=== PATIENT | male | born 1985 | race Caucasian/White ===

== ENCOUNTER 2017-07-10 10:27 | Emergency (ER) | payer MEDICAID ==
[~2017-07-10] VITALS: Ht 175.3 cm; Wt 90.0 kg
[~2017-07-10 10:27] MED LIST: Z.0.NO CURRENT MEDS
[2017-07-10 10:30] VITALS: BP 132/62; PULSE 72; RESP 16; TEMP 98.4; O2SAT 98
[2017-07-10] MEDS ORDERED: PROPARACAINE HCL 0.5% OPHT SOLN 15 ML BTL LEFT EYE ONE (11:00)
[2017-07-10] MEDS ORDERED: FLUORESCEIN SOD 1 MG STRIP LEFT EYE ONE (11:00)
--- NOTE | 2017-07-10 11:09 | PD ---
HPI Chief Complaint: Eye Problems/Injury Time Seen by Provider: 11:08 Travel History International Travel<30 days: No Contact w/Intl Traveler<30days: No Traveled to known affect area: No History of Present Illness HPI 32-year-old male presents the emergency department with injury to the left side. 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 He states he rinsed it thoroughly at the time and Continued to work. Patient states the pain is worsening as well as some purulent drainage this morning. He states his vision is not affected, but he is photophobic. Pain is 8 out of 10. He has no other complaints. He has allergies to sulfa. PFSH Past Medical History Bipolar Disorder: Yes Heart Rhythm Problems: No Cardiac Catheterization: No Cardiovascular Problems: Yes High Cholesterol: No Congestive Heart Failure: No Diabetes: No Hypertension: No Immunizations Current: Yes Myocardial Infarction: No Past Surgical History Coronary Artery Bypass Graft: No Social History Alcohol Use: No Tobacco Use: Yes Substance Use: No Allergies-Medications (Allergen,Severity, Reaction): Coded Allergies: Sulfa (Sulfonamide Antibiotics) (Verified Allergy, Intermediate, 07/10/17) Reported Meds & Prescriptions Reported Meds & Active Scripts Active Reported No Current Meds (Miscellaneous Medication) Misc Review of Systems Except as stated in HPI: all other systems reviewed are Neg General / Constitutional: No: Fever Eyes: Positive: Photophobia, Drainage, Redness, Foreign Body Sensation, Pain, Tearing, No: Diploplia, Blurred Vision, Blind Spots, Visual changes, Blindness HENT: No: Headaches Cardiovascular: No: Chest Pain or Discomfort Respiratory: No: Shortness of Breath Gastrointestinal: No: Abdominal Pain Genitourinary: No: Dysuria Musculoskeletal: No: Pain Skin: No Rash Neurologic: No: Weakness Psychiatric: No: Depression Endocrine: No: Polydipsia Hematologic/Lymphatic: No: Easy Bruising Physical Exam Narrative GENERAL: Patient appears in mild to moderate distress. SKIN: Warm and dry. Normal color. Normal turgor. HEAD: Atraumatic. Normocephalic. EYES: Pupils equal and round. No scleral icterus. The patient has moderate injection and tearing from the left eye. Fluorescein dye is applied as well as proparacaine drops, with obvious corneal abrasions noted on Wood lamp exam at the 4 o'clock position. ENT: No nasal bleeding or discharge. Mucous membranes pink and moist. Pharynx is clear. Airway is patent. NECK: Trachea midline. Supple. CARDIOVASCULAR: Regular rate and rhythm. RESPIRATORY: No accessory muscle use. MUSCULOSKELETAL: Extremities without clubbing, cyanosis, or edema. No obvious deformities. NEUROLOGICAL: Awake and alert. No obvious cranial nerve deficits. Motor grossly within normal limits. Five out of 5 muscle strength in the arms and legs. Normal speech. PSYCHIATRIC: Appropriate mood and affect; insight and judgment normal. Data Data Last Documented VS Vital Signs Date Time Temp Pulse Resp B/P (MAP) Pulse Ox O2 Delivery O2 Flow Rate FiO2 07/10/17 10:30 98.4 72 16 132/62 (85) 98 Orders Orders Proparacaine 0.5% Opth Soln (Alcaine 0.5 (07/10/17 11:00) Fluorescein Strip ([id number] A.T.) (07/10/17 11:00) MDM Medical Decision Making Medical Screen Exam Complete: Yes Emergency Medical Condition: Yes Differential Diagnosis Left corneal abrasion. Chemical burn. Conjunctivitis. Narrative Course Patient is medically stable at time of exam. Patient is treated with erythromycin ophthalmic ointment every 4 hours while awake. Patient also given ibuprofen 800 mg 3 times daily with food #30. Patient follow-up with records clerk if symptoms do not improve. Diagnosis Primary Impression: Corneal abrasion, left Qualified Codes: S05.02XA - Injury of conjunctiva and corneal abrasion without foreign body, left eye, initial encounter Referrals: Chicken Buyer Patient Instructions: Conjunctivitis (ED), General Instructions Scripts Ibuprofen (Ibuprofen) 800 Mg Tab 800 MG PO Q8H Y for Pain/Inflammation, #30 TAB 0 Refills Prov: Jovanna Curtis MD 07/10/17 Erythromycin Opth Oint (Erythromycin Opth Oint) 5 Mg/Gm Oint 1 APPLIC LEFT EYE Q4HR WHILE AWAKE NEB for Infection, #1 TUBE 0 Refills Prov: Jovanna Curtis MD 07/10/17 Disposition: 01 DISCHARGE HOME Condition: Stable Prince Vallejo Jul 10, 2017 11:09
[2017-07-10] MEDS ORDERED: IBUP800T23 PO ×3 (11:22→11:31)
[2017-07-10] MEDS ORDERED: ERYTOIN10 LEFT EYE (11:22)
[2017-07-20] MEDS ORDERED: PRED1SUS6 LEFT EYE (10:31)
== END 2017-07-10 11:41 | disposition home or self-care (01) ==
LOC: NEPK 10:27
DX: S05.02XA Injury of conjunctiva and corneal abrasion without foreign body, left eye, initial encounter (principal); F31.9 Bipolar disorder, unspecified; W45.8XXA Other foreign body or object entering through skin, initial encounter; Y93.89 Activity, other specified; Z72.0 Tobacco use
CPT/HCPCS: 99283

== ENCOUNTER 2017-07-13 18:13 | Emergency (ER) | payer MEDICAID ==
[~2017-07-13] VITALS: Ht 152.4 cm; Wt 90.0 kg
[~2017-07-13 18:13] MED LIST changes: +ERYTOIN10 LEFT EYE; +IBUP800T23 PO
[2017-07-13 18:17] VITALS: BP 126/85; PULSE 83; RESP 14; TEMP 98.7; O2SAT 99
[2017-07-13] MEDS ORDERED: PROPARACAINE HCL 0.5% OPHT SOLN 15 ML BTL LEFT EYE ONE (18:45)
[2017-07-13] MEDS ORDERED: ERYTOIN10 LEFT EYE (18:58)
[2017-07-13] MEDS ORDERED: IBUP800T23 PO (18:58)
[2017-07-13] MEDS ORDERED: PERC5TAB12 PO (18:58)
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
[2017-07-13] MEDS ORDERED: oxyCODONE/ACETAMINOPHEN 5 MG/325 MG TAB PO ONE (19:00)
[2017-07-20] MEDS ORDERED: PRED1SUS6 LEFT EYE (10:31)
== END 2017-07-13 19:23 | disposition home or self-care (01) ==
LOC: NEPK 18:13
DX: T65.891D Toxic effect of other specified substances, accidental (unintentional), subsequent encounter (principal); T26 Burn and corrosion confined to eye and adnexa; Z72.0 Tobacco use; Z86.59 Personal history of other mental and behavioral disorders; Z86.79 Personal history of other diseases of the circulatory system; X58.XXXD Exposure to other specified factors, subsequent encounter; Y99.0 Civilian activity done for income or pay
CPT/HCPCS: 99284

== ENCOUNTER 2017-08-11 17:08 | Emergency (ER) | payer MEDICAID, OTHER ==
[~2017-08-11 17:08] MED LIST changes: +IBUP1TAB7 PO; -IBUP800T23 PO; +PERC5TAB12 PO; +PRED1SUS6 LEFT EYE; -Z.0.NO CURRENT MEDS
[2017-08-11 17:15] VITALS: BP 140/74; PULSE 113; RESP 18; TEMP 97; O2SAT 98
[2017-08-11 18:49] VITALS: BP 147/78; PULSE 101; RESP 20; TEMP 98; O2SAT 98
[2017-08-11] MEDS ORDERED: diphenhydrAMINE HCL 50 MG CAP PO ONE (20:00)
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
[2017-08-11 20:15] LABS: AUTOMATED NEUTROPHIL # 6.5 TH/MM3 (1.8-7.7); BASOPHIL % 0.2 % (0.0-2.0); EOSINOPHIL % 0.4 % (0.0-4.0); HEMATOCRIT 43.1 % (39.0-51.0); HEMO FLAGS DIFF FINAL; LYMPH % 24.9 % (9.0-44.0); LYMPHOCYTE # 2.6 TH/MM3 (1.0-4.8); MEAN CELL VOLUME 88.6 FL (80.0-100.0); MEAN CORPUSCULAR HEMOGLOBIN 30.4 PG (27.0-34.0); MEAN CORPUSCULAR HGB CONC 34.3 % (32.0-36.0); MONO % 12.1 % (0.0-8.0); NEUT % 62.4 % (16.0-70.0); PLATELET COUNT 333 TH/MM3 (150-450); RED BLOOD COUNT 4.86 MIL/MM3 (4.50-5.90); RED CELL DISTRIBUTION WIDTH 12.4 % (11.6-17.2); WHITE BLOOD COUNT 10.4 TH/MM3 (4.0-11.0)
[2017-08-11 20:39] LABS: ANION GAP 10 MEQ/L (5-15); AST (GOT) 18 U/L (15-37); BICARBONATE 22.4 MEQ/L (21.0-32.0); BLOOD UREA NITROGEN 10 MG/DL (7-18); CHLORIDE 105 MEQ/L (98-107); GLOMERULAR FILTRATION RATE 100 ML/MIN (>89); POTASSIUM 3.7 MEQ/L (3.5-5.1); SODIUM (NA) 137 MEQ/L (136-145)
[2017-08-11 20:42] LABS: ACETAMINOPHEN LESS THAN 3.0 MCG/ML (10.0-30.0); ALCOHOL LESS THAN 3 MG/DL (0-5); ALKALINE PHOSPHATASE 84 U/L (45-117); ALT (GPT) 42 U/L (12-78); TOTAL BILIRUBIN ADULT 0.6 MG/DL (0.2-1.0)
== END 2017-08-12 01:56 ==
LOC: NEPJ 17:08
DX: F19.10 Other psychoactive substance abuse, uncomplicated (principal); F31.9 Bipolar disorder, unspecified; F43.10 Post-traumatic stress disorder, unspecified; F20.9 Schizophrenia, unspecified
CPT/HCPCS: 80053; 80307; 85025; 99284; Q0163

== ENCOUNTER 2017-08-29 09:42 | Emergency (ER) | payer MEDICAID, OTHER ==
[~2017-08-29] VITALS: Ht 177.8 cm; Wt 85.0 kg
[2017-08-29 09:43] VITALS: BP 138/78; PULSE 89; RESP 16; TEMP 97.8; O2SAT 100
[2017-08-29] MEDS ORDERED: PROPARACAINE HCL 0.5% OPHT SOLN 15 ML BTL RIGHT EYE ONE (10:30)
[2017-08-29] MEDS ORDERED: ERYTOIN10 LEFT EYE (11:07)
--- NOTE | 2017-08-29 11:09 | PD ---
HPI . Foreign body in right eye Chief Complaint: Foreign Body Time Seen by Provider: 10:35 Travel History International Travel<30 days: No Contact w/Intl Traveler<30days: No Traveled to known affect area: No History of Present Illness HPI 32-year-old male patient presents emergency department for evaluation for body in his right eye. Patient states he was cutting metal on Thursday without his safety glasses on and felt something in his eye then. Patient states the symptoms have not resolved since that time. Patient denies any blurred vision or visual disturbances. Patient states he is up-to-date on his tetanus. PFSH Past Medical History Bipolar Disorder: Yes Heart Rhythm Problems: No Cardiac Catheterization: No Cardiovascular Problems: Yes High Cholesterol: No Congestive Heart Failure: No Diabetes: No Heparin Induced Thrombocytopen: No Hypertension: No Psychiatric: Yes (PTSD) Immunizations Current: Yes Myocardial Infarction: No Schizophrenia: Yes Past Surgical History Coronary Artery Bypass Graft: No Other Surgery: Yes (BLE venous removal) Social History Alcohol Use: No (Lives in a sober living community) Tobacco Use: No Substance Use: No (Lives in a sober living community) Allergies-Medications (Allergen,Severity, Reaction): Coded Allergies: Sulfa (Sulfonamide Antibiotics) (Verified Allergy, Intermediate, 07/27/17) Reported Meds & Prescriptions Reported Meds & Active Scripts Active Erythromycin Opth Oint 5 Mg/Gm Oint 1 Applic LEFT EYE QID 7 Days Prednisolone Acetate Opth 1% Susp 1 Drop LEFT EYE Q4HR Erythromycin Opth Oint 5 Mg/Gm Oint 1 Applic LEFT EYE QID 7 Days Ibuprofen 800 Mg Tab 800 Mg PO Q6HR PRN Percocet (Oxycodone-Acetaminophen) 5-325 mg Tab 1-2 Tab PO Q6H PRN Ibuprofen 800 Mg Tab 800 Mg PO Q8H PRN Erythromycin Opth Oint 5 Mg/Gm Oint 1 Applic LEFT EYE Q4HR WHILE AWAKE NEB Review of Systems Except as stated in HPI: all other systems reviewed are Neg Physical Exam Narrative GENERAL: Well-nourished, well-developed 32-year-old male patient in no acute distress. Nontoxic-appearing. SKIN: Focused skin assessment warm/dry. HEAD: Normocephalic. Atraumatic.. EYES: Right eye mildly injected. Small fluorescein dye uptake located between the 8 o'clock and 9 o'clock position over the iris, not in the central vision. PERRLA demonstrated, extraocular motions intact bilaterally. Visual acuity: Right eye 20/50, left eye 20/20, bilateral eyes 20/40. NECK: Supple, trachea midline. No JVD or lymphadenopathy. CARDIOVASCULAR: Regular rate and rhythm without murmurs, gallops, or rubs. RESPIRATORY: Breath sounds equal bilaterally. No accessory muscle use. GASTROINTESTINAL: Abdomen soft, non-tender, nondistended. MUSCULOSKELETAL: No cyanosis, or edema. BACK: Nontender without obvious deformity. No CVA tenderness. Data Data Last Documented VS Vital Signs Date Time Temp Pulse Resp B/P (MAP) Pulse Ox O2 Delivery O2 Flow Rate FiO2 08/29/17 11:31 08/29/17 09:43 97.8 89 16 100 Orders Orders Proparacaine 0.5% Opth Soln (Alcaine 0.5 (08/29/17 10:30) Ed Discharge Order (08/29/17 11:09) [facility] Medical Decision Making Medical Screen Exam Complete: Yes Emergency Medical Condition: Yes Differential Diagnosis Differential diagnoses include but not limited to foreign body in the right eye , corneal abrasion, iritis Narrative Course 32-year-old male patient presents emergency department for evaluation of foreign body in his right eye. Proparacaine was administered of the right eye. Eye was thoroughly irrigated with normal saline. Small foreign body was removed. Fluorescein dye and Wood lamp was used to evaluate for corneal abrasions. Small amount of fluorescein dye uptake was started between 8 and 9 o 'clock position over the iris. Patient was given a prescription for erythromycin ointment and discharged home with instructions to follow-up with an third miller if symptoms persist but otherwise come to the emergency Department with any worsening condition or acute changes. Diagnosis Primary Impression: Corneal abrasion Qualified Codes: S05.01XA - Injury of conjunctiva and corneal abrasion without foreign body, right eye, initial encounter Referrals: Primary Care Physician Patient Instructions: Corneal Abrasion (ED), General Instructions Additional Instructions: Please return to emergency department if your symptoms return or worsen. Follow up with your primary care provider. Take medications as prescribed. Med/Other Pt SpecificInfo: Prescription(s) given Scripts Erythromycin Opth Oint (Erythromycin Opth Oint) 5 Mg/Gm Oint 1 APPLIC LEFT EYE QID for Infection for 7 Days, #1 TUBE 0 Refills Prov: Jovanna Hendrix 08/29/17 Disposition: 01 DISCHARGE HOME Condition: Stable Jovanna Hendrix Aug 29, 2017 11:08
== END 2017-08-29 11:31 | disposition home or self-care (01) ==
LOC: NEPD 09:42
DX: S05.01XA Injury of conjunctiva and corneal abrasion without foreign body, right eye, initial encounter (principal); F31.9 Bipolar disorder, unspecified; F43.10 Post-traumatic stress disorder, unspecified; F20.9 Schizophrenia, unspecified; Z79.899 Other long term (current) drug therapy; Z88.2 Allergy status to sulfonamides; W22.8XXA Striking against or struck by other objects, initial encounter
CPT/HCPCS: 99283

== ENCOUNTER 2017-10-19 18:52 | Emergency (ER) | payer MEDICAID ==
[~2017-10-19] VITALS: Ht 175.3 cm; Wt 86.4 kg
[2017-10-19 18:53] VITALS: BP 148/69; PULSE 77; RESP 18; TEMP 98.3; O2SAT 100
[2017-10-19] MEDS ORDERED: FLUT1SPR5 EACH NARE (20:28)
[2017-10-19] MEDS ORDERED: MUPI2%T TOPICAL (20:28)
--- NOTE | 2017-10-19 20:28 | PD ---
HPI Chief Complaint: Cold / Flu Symptoms Time Seen by Provider: 20:13 Travel History International Travel<30 days: No Contact w/Intl Traveler<30days: No Traveled to known affect area: No History of Present Illness HPI 32-year-old male here with mild URI-like symptoms for the last week. He also has multiple small pustules on his abdomen where he shaves. He denies fever or chills. Contacts or foreign travel. No aggravating or alleviating factors. Symptoms severity is mild. PFSH Past Medical History Bipolar Disorder: Yes Heart Rhythm Problems: No Cardiac Catheterization: No Cardiovascular Problems: Yes High Cholesterol: No Congestive Heart Failure: No Diabetes: No Heparin Induced Thrombocytopen: No Hypertension: No Psychiatric: Yes (PTSD) Immunizations Current: Yes Myocardial Infarction: No Schizophrenia: Yes Past Surgical History Coronary Artery Bypass Graft: No Other Surgery: Yes (BLE venous removal) Social History Alcohol Use: No (Lives in a sober living community) Tobacco Use: No Substance Use: No (Lives in a sober living community) Allergies-Medications (Allergen,Severity, Reaction): Coded Allergies: Sulfa (Sulfonamide Antibiotics) (Verified Allergy, Intermediate, 07/27/17) Reported Meds & Prescriptions Reported Meds & Active Scripts Active Erythromycin Opth Oint 5 Mg/Gm Oint 1 Applic LEFT EYE QID 7 Days Prednisolone Acetate Opth 1% Susp 1 Drop LEFT EYE Q4HR Erythromycin Opth Oint 5 Mg/Gm Oint 1 Applic LEFT EYE QID 7 Days Ibuprofen 800 Mg Tab 800 Mg PO Q6HR PRN Percocet (Oxycodone-Acetaminophen) 5-325 mg Tab 1-2 Tab PO Q6H PRN Ibuprofen 800 Mg Tab 800 Mg PO Q8H PRN Erythromycin Opth Oint 5 Mg/Gm Oint 1 Applic LEFT EYE Q4HR WHILE AWAKE NEB Review of Systems Except as stated in HPI: all other systems reviewed are Neg General / Constitutional: No: Fever Eyes: No: Visual changes HENT: Positive: Sore Throat, Congestion Cardiovascular: No: Chest Pain or Discomfort Respiratory: Positive: Cough Gastrointestinal: No: Abdominal Pain Genitourinary: No: Dysuria Musculoskeletal: No: Pain Physical Exam Narrative GENERAL: Alert and well-appearing male SKIN: Warm and dry. Multiple small erythematous pustules on patient's abdomen. No areas of induration or fluctuance. HEAD: Normocephalic. EYES: No scleral icterus. No injection or drainage. Ears/nose/throat; no TM erythema. Clear nasal discharge. No sinus tenderness. Mild pharyngeal erythema without tonsillar hypertrophy or exudate. Uvula is midline. Airway is patent. NECK: Supple, trachea midline. CARDIOVASCULAR: Regular rate and rhythm RESPIRATORY: Breath sounds equal bilaterally. No accessory muscle use. GASTROINTESTINAL: Abdomen soft, non-tender, nondistended. Data Data Last Documented VS Vital Signs Date Time Temp Pulse Resp B/P (MAP) Pulse Ox O2 Delivery O2 Flow Rate FiO2 10/19/17 18:53 98.3 77 18 148/69 (95) 100 MDM Medical Decision Making Medical Screen Exam Complete: Yes Emergency Medical Condition: Yes Differential Diagnosis URI, folliculitis, abscess Narrative Course 32-year-old male with mild URI and mild case of folliculitis on his abdomen. He 'll be treated with Flonase for his nasal congestion and Bactroban ointment for his folliculitis. Diagnosis Primary Impression: Folliculitis Additional Impression: URI (upper respiratory infection) Qualified Codes: J06.9 - Acute upper respiratory infection, unspecified; B97.89 - Other viral agents as the cause of diseases classified elsewhere Referrals: [facility] Scripts Mupirocin Topical (Bactroban Topical) 22 Gm Cream 1 APPLIC TOPICAL BID for Mgmt Bacterial Infection, #1 TUBE 0 Refills Prov: Christa Kruger 10/19/17 Fluticasone Nasal [place] (Flonase Nasal [place]) 50 Mcg/Act [place] 50 MCG EACH NARE BID for Allergies, #1 BOTTLE 0 Refills Prov: Christa Kruger 10/19/17 Disposition: 01 DISCHARGE HOME Condition: Stable Christa Kruger Oct 19, 2017 20:28
== END 2017-10-19 20:39 | disposition home or self-care (01) ==
LOC: NEPK 18:52
DX: L73.9 Follicular disorder, unspecified (principal); J06.9 Acute upper respiratory infection, unspecified; F31.9 Bipolar disorder, unspecified; F43.10 Post-traumatic stress disorder, unspecified; F20.9 Schizophrenia, unspecified
CPT/HCPCS: 99284

== ENCOUNTER 2017-11-27 07:26 | Emergency (ER) | payer MEDICAID ==
[~2017-11-27] VITALS: Ht 175.3 cm; Wt 87.0 kg
[~2017-11-27 07:26] MED LIST changes: +FLUT1SPR5 EACH NARE; +MUPI2%T TOPICAL
[2017-11-27 07:27] VITALS: BP 138/83; PULSE 78; RESP 16; TEMP 99.2; O2SAT 99
--- NOTE | 2017-11-27 07:54 | PD ---
HPI Chief Complaint: Medical Clearance Time Seen by Provider: 07:42 Travel History International Travel<30 days: No Contact w/Intl Traveler<30days: No Traveled to known affect area: No History of Present Illness HPI 32-year-old male presents to the emergency department requesting a note to return back to work tomorrow after calling off because he was up vomiting last night. He says he last vomited at 4 AM and has had water and tea and is without continued nausea and vomiting. He denies abdominal pain. Reports a bout of diarrhea this morning. Denies hematemesis or hematochezia. Denies fevers. Denies dysuria. His only request is work note. He has not taken any medications or tried any treatments to alleviate his symptoms. No known relieving factors. Thinks his symptoms were aggravated by eating bad solids last night. Denies alcohol or illicit drug use. Dr. Tai is his primary care provider. Denies significant past medical history. Allergies to sulfa. Has no other medical complaints. No other modifying factors or associated signs and symptoms. History Social History Alcohol Use: No (Lives in a sober living community) Tobacco Use: No Allergies-Medications (Allergen,Severity, Reaction): Coded Allergies: Sulfa (Sulfonamide Antibiotics) (Verified Allergy, Intermediate, 07/27/17) Reported Meds & Prescriptions Reported Meds & Active Scripts Active No Active Prescriptions or Reported Medications Review of Systems Except as stated in HPI: all other systems reviewed are Neg Physical Exam Narrative GENERAL: Well-nourished, well-developed male patient, in no acute distress; afebrile, nontoxic-appearing SKIN: Warm and dry. HEAD: Atraumatic. Normocephalic. EYES: Pupils equal and round. No scleral icterus. No injection or drainage. ENT: Mucosa pink and moist. Airway patent. NECK: Trachea midline. CARDIOVASCULAR: Regular rate and rhythm. No murmur appreciated. RESPIRATORY: No accessory muscle use. Breath sounds clear and equal bilaterally. GASTROINTESTINAL: Abdomen soft, non-tender, nondistended. Positive bowel sounds. No hepato-splenomegaly, or palpable masses. No guarding. MUSCULOSKELETAL: No obvious deformities. No clubbing. No cyanosis. No edema. NEUROLOGICAL: Awake and alert. Oriented 3. No obvious cranial nerve deficits. Motor grossly within normal limits. Normal speech. PSYCHIATRIC: Appropriate mood and affect; insight and judgment normal. Data Data Last Documented VS Vital Signs Date Time Temp Pulse Resp B/P (MAP) Pulse Ox O2 Delivery O2 Flow Rate FiO2 11/27/17 07:27 99.2 78 16 138/83 (101) 99 Room Air [facility] Medical Screen Exam Complete: Yes Emergency Medical Condition: No Differential Diagnosis Medical clearance, gastroenteritis Narrative Course Patient requesting note to return back to work after calling out. His primary care provider is Dr. Tai. He can follow-up with his primary care provider in the office. Vital signs are stable and the patient is stable for outpatient follow-up and treatment. The patient has no urgent or emergent medical complaints. There is no emergent or urgent medical need at this time. I instructed the patient to follow up with their primary care provider. A medical screening exam was performed: At the time of evaluation the presenting medical condition was determined not to be of an emergent nature. The patient was given the option of receiving additional care, but declined. Patient was given options for additional community resources from which to obtain care. The Patient Has Been advised to seek medical attention for their presenting complaint. The patient has been advised to return to the ER at any time if an emergent condition develops. Primary Impression: Encounter for medical screening examination Scripts No Active Prescriptions or Reported Meds Condition: Stable Luisa Bush Nov 27, 2017 07:54
== END 2017-11-27 07:57 | disposition left against medical advice (07) ==
LOC: NEPD 07:26
DX: R11.10 Vomiting, unspecified (principal); R19.7 Diarrhea, unspecified; Z88.2 Allergy status to sulfonamides
CPT/HCPCS: 99281